=== PATIENT | male | born 1965 | race Caucasian/White ===

== ENCOUNTER 2017-06-04 18:34 | Emergency (ER) | payer MEDICAID, OTHER ==
[~2017-06-04] VITALS: Ht 180.3 cm; Wt 110.7 kg
[2017-06-04 18:42] VITALS: BP 139/88; PULSE 91; RESP 16; TEMP 98.7; O2SAT 95
--- NOTE | 2017-06-04 19:05 | PD ---
HPI Chief Complaint: Laceration/Skin Injury Time Seen by Provider: 19:05 Travel History International Travel<30 days: No Contact w/Intl Traveler<30days: No Traveled to known affect area: No History of Present Illness HPI 51-year-old male presents the emergency department with laceration to the palmar surface of the left pain he from a box cutting knife, while trimming a piece of board, when the knife slipped and sliced his finger. The cut is longitudinal along the palmar surface from just distal to the MIP and across the DIP joint. Patient's range of motion is normal. Patient is unsure of his last tetanus shot. He has no known drug allergies. [facility] Social History Alcohol Use: Yes Tobacco Use: No Substance Use: No Allergies-Medications (Allergen,Severity, Reaction): Coded Allergies: No Known Allergies (Unverified , 06/04/17) Reported Meds & Prescriptions Reported Meds & Active Scripts Active Reported Amlodipine (Amlodipine Besylate) 5 Mg Tab 5 Mg PO DAILY Metoprolol Tartrate 25 Mg Tab 25 Mg PO DAILY Review of Systems Except as stated in HPI: all other systems reviewed are Neg General / Constitutional: No: Fever Eyes: No: Visual changes HENT: No: Headaches Cardiovascular: No: Chest Pain or Discomfort Respiratory: No: Shortness of Breath Gastrointestinal: No: Abdominal Pain Genitourinary: No: Dysuria Musculoskeletal: No: Pain Skin: No Rash Neurologic: No: Weakness Psychiatric: No: Depression Endocrine: No: Polydipsia Hematologic/Lymphatic: No: Easy Bruising Physical Exam Narrative GENERAL: Patient is in no acute distress. SKIN: Warm and dry. Normal color. Normal turgor. Patient has a linear laceration to the left palmar surface of the distal pinky area bleeding is controlled. HEAD: Atraumatic. Normocephalic. EYES: Pupils equal and round. No scleral icterus. No injection or drainage. ENT: No nasal bleeding or discharge. Mucous membranes pink and moist. Pharynx is clear. Airway is patent NECK: Trachea midline. Supple nontender. CARDIOVASCULAR: Regular rate and rhythm. RESPIRATORY: No accessory muscle use. MUSCULOSKELETAL: Extremities without clubbing, cyanosis, or edema. No obvious deformities. NEUROLOGICAL: Awake and alert. No obvious cranial nerve deficits. Motor grossly within normal limits. Five out of 5 muscle strength in the arms and legs. Normal speech. PSYCHIATRIC: Appropriate mood and affect; insight and judgment normal. Data Data Last Documented VS Vital Signs Date Time Temp Pulse Resp B/P Pulse Ox O2 Delivery O2 Flow Rate FiO2 06/04/17 18:42 98.7 91 16 139/88 95 Orders Tetanus/Diphtheria Tox Adult (Tetanus/Di (06/04/17 19:15) Lidocai-Epi 1%-1:100,000 Inj (Xylocaine- (06/04/17 19:15) MDM Medical Decision Making Medical Screen Exam Complete: Yes Emergency Medical Condition: Yes Differential Diagnosis Workplace injury. Laceration. Sutures. Narrative Course Laceration repair is performed please see procedure note. Patient is given tetanus IM. Patient can take ibuprofen or Tylenol as needed for any pain. No antibiotics are prescribed at this time. Wound instructions are reviewed with the patient. Dressing should remain in place for the next 2 days and then follow-up in 7 days for wound check and suture removal. Procedures Procedure Narrative LACERATION LOCATION: Left distal pinky LENGTH: 2 cm NUMBER OF STITCHES/ARABELLA: 4 interrupted vertical mattress REPAIR: The area of the laceration was prepped with Betadine and sterilely draped. Digital block is placed consisting of 2-1/2 mL's of 1% lidocaine with epi with good anesthetic effect.. The wound was copiously irrigated and explored without evidence of foreign body, tendon injury or neurovascular injury. The wound was closed using 5-0 Prolene. This was a single layer repair. A sterile dressing was applied. The patient was advised to keep the dressing clean and dry. Patient tolerated the procedure well. Diagnosis Primary Impression: Laceration of left little finger Qualified Code: S61.217A - Laceration of left little finger without foreign body without damage to nail, initial encounter Patient Instructions: Finger Laceration (ED), General Instructions Additional Instructions: Laceration repair is performed please see procedure note. Patient is given tetanus IM. Patient can take ibuprofen or Tylenol as needed for any pain. No antibiotics are prescribed at this time. Wound instructions are reviewed with the patient. Dressing should remain in place for the next 2 days and then follow-up in 7 days for wound check and suture removal. Med/Other Pt SpecificInfo: Wound Care Disposition: 01 DISCHARGE HOME Condition: Stable Alexey Gonzalez Jun 04, 2017 19:05
[2017-06-04] MEDS ORDERED: LIDOCAINE 1%/EPINEPHrine 1:100,000 SOLN 20 ML VIAL INFIL ONE (19:15)
[2017-06-04] MEDS ORDERED: TETANUS/DIPHTHERIA TOXOID ADULT 0.5 ML VIAL IM ONE (19:15)
[2017-06-04] MEDS ORDERED: METO25TA3 PO (19:33)
[2017-06-04] MEDS ORDERED: AMLO5TAB2 PO (19:33)
== END 2017-06-04 19:53 | disposition home or self-care (01) ==
LOC: PHEFT 18:34
DX: S61.217A Laceration without foreign body of left little finger without damage to nail, initial encounter (principal); Z23 Encounter for immunization; W27.8XXA Contact with other nonpowered hand tool, initial encounter
CPT/HCPCS: 12001; 90471; 90714